=== PATIENT | female | born 1995 | race Caucasian/White ===

== ENCOUNTER 2018-03-19 03:56 | Inpatient (IN) | payer SELFPAY ==
[2018-03-19 00:42] VITALS: BMI 29.2
[2018-03-19] MEDS: 0.9% NaCl Peripheral Flush Adult/Peds IV (02:39)
[2018-03-19] MEDS: Nalbuphine 10 MG/ML Ampul 5 MG IV (02:40)
[2018-03-19] MEDS: Lactated Ringers 1,000 ML 50 ML IV ×3 (04:12→09:59)
[2018-03-19 04:32] LABS: Hematocrit 33.3 % (37-47); Hemoglobin 11.3 g/dl (12.0-15.0); Mean Corp Hgb Conc 33.9 g/gl (32-36); Mean Corpuscular Volume 94.3 fL (81-99); Mean Platelet Vol. 11.2 fl (6.2-12.0); Platelet Count 170 K/mm3 (150-450); RBC Distribution Width CV 13.4 % (11.6-14.6); Red Blood Count 3.53 M/mm3 (4.2-5.4); White Blood Count 13.3 K/mm3 (4.4-11.0)
[2018-03-19 04:33] LABS: Scan Indicated on CBC? Y/N NO
[2018-03-19] MEDS: fentaNYL-bupivacaine (epidural) 100 ML BAG EPIDURAL ×2 (05:30→11:07)
--- NOTE | 2018-03-19 07:59 | HP.PCM_ITS ---
- Problem List (1) History of delivery Status: Acute (2) Short interval between pregnancies affecting , antepartum Status: Acute (3) Rubella non-immune status, antepartum Status: Acute (4) Positive GBS test Status: Acute History Date of Admission: 03/19/18 Final CORINNE: 03/25/18 Gestational age: 39 Weeks and 1 Days History of this : This is a 22 year-old, G2, P1, at 39 weeks gestational age who presented overnight in active labor. +Ctx's. No VB, LOF. She initially had care at [facility]. Hx of 1 prior , LTCS for breech presentation with triple-layer closure. uncomplicated to date. Allergies No Known Allergies Allergy (Verified 03/19/18 00:38) Home Medications: Home Medications Calcium 1 tab PO DAILY 03/19/18 Vit No.130/Iron/Folic [ Tablet] 1 tab PO DAILY 03/19/18 Smoking Status: Former smoker Number of Fetus(es): 1 Heart Tracing: Category 1 TOCO Analysis: Ctx q 2 min History Past Pregnancies: Past Pregnancies Delivery Date Name GA/Weeks Outcome Route Weight Gender Labor Length Anesthesia Delivery Location Provider FOB term C/S for breech Expected Delivery Method: Review of Systems Gynecological: Reports: - - +Ctx. No vb, lof. Physical Exam General: Alert, No apparent distress HEENT: Atraumatic Lungs: - Abdomen: Gravid Neurological: Neuro grossly intact Estimated gestational size: Appropriate for gestational size Presentation: Cephalic Cervix Dilation (cm): 5 - 5cm on admission at 4am Assessment/Plan All Active Problems History of delivery (Acute) Short interval between pregnancies affecting , antepartum (Acute) Rubella non-immune status, antepartum (Acute) Positive GBS test (Acute) This is a 22 year-old, G2, P1, at 39 weeks gestational age who presents in active labor. Hx of prior LTCS for breech presentation. Desires TOLAC. - Risks, benefits, alternatives of a TOLAC have been discussed with pt - PCN for GBS positive - Routine intrapartum care
--- NOTE | 2018-03-19 08:14 | PCM.PN.OB ---
Patient Problems: Active and Suspected Problems History of delivery (Acute) Short interval between pregnancies affecting , antepartum (Acute) Rubella non-immune status, antepartum (Acute) Positive GBS test (Acute) Subjective: Patient comfortable after receiving epidural, denies any rectal pressure at this time. Discussed option for SVE with AROM at this time, patient consents. Objective: FHT baseline 140, mild to moderate variability, + accels, no decels Ctx q 2-3 minutes, palpate moderate to strong SVE = 9/100/0 with BBOW, AROM for meconium fluid - Physical Exam General: Alert, Oriented x3 Lungs: Clear to auscultation Cardiovascular: Regular rate, Regular Rhythm Abdomen: Soft, Non Tender Extremities: No edema Skin: No rashes Neurological: Cranial nerves II-XII grossly intact, Deep Tendon Reflexes 2+/4 and Symmetrical Psych/Mental Status: Normal Affect Weight: 155 lb Body Mass Index (BMI) 29.2 Intake and Output for Last 24 Hours 03/17/18 03/18/18 03/19/18 23:59 23:59 23:59 Intake Total 1295 / 1295 Output Total 200 / 200 Balance 1095 / 1095 Laboratory Tests Past 24 Hrs 03/19/18 03/19/18 02:30 02:30 WBC 13.3 H RBC 3.53 L Hgb 11.3 L Hct 33.3 L MCV 94.3 MCH 32.0 MCHC 33.9 RDW 13.4 RDW Differential 44.0 H Plt Count 170 MPV 11.2 Blood Type A POSITIVE Antibody Screen NEGATIVE Medical Necessity - Tobacco Use Smoking Status: Former smoker Assessment/Plan All Active Problems History of delivery (Acute) Short interval between pregnancies affecting , antepartum (Acute) Rubella non-immune status, antepartum (Acute) Positive GBS test (Acute) 22 y/o @ 40+ weeks, Active Labor, TOLAC, Category I FHT P: 1) Continue present management 2) Report given to Dr. Luis Angel KOLB OB back-up physician, physician on site at this time 3) Anticipate Eli Hughes APRN-BRYCE
[2018-03-19] MEDS: Ondansetron 4 MG/2 ML Vial IV (10:55)
[2018-03-19] MEDS: Oxytocin 30 units/NS 500 ml 30 UNITS/500 ML IV.SOLN 334 UNITS IV (12:10)
--- NOTE | 2018-03-19 12:32 | PCM.OB.VAG ---
Vaginal Delivery Maternal Presentation: Active Labor Amniotic Membrane Rupture Type: Artificial Amniotic Fluid Description: Moderate meconium Final CORINNE: 03/25/18 Gestational age: 39 Weeks and 1 Days Date of Procedure: 03/19/18 Pre-Operative Diagnosis: Active Labor, TOLAC Post-Operative Diagnosis: of Viable Girl Baby Surgery/ Procedure Performed: Spontaneous Vaginal Delivery Type of Anesthesia: Epidural Description of Procedure: Patient progressed well to complete and +1 station. Patient pushed well with urge and delivered viable baby girl at 1204. head delivered OA, restituted to AMADA and then ROT. Anterior shoulder delivered spontaneously followed by posterior shoulder and body. Peds at bedside on standby for meconium stained fluid, but baby was vigorous and with a strong cry and respirations. Infant placed on maternal chest where the baby was dried and stimulated. Apgars 8 and 9. Weight pending. Umbilical cord clamped and cut once it stopped pulsing. Placenta then delivered spontaneously via Rothman mechanism intact with 3VC. FF midline 2FB below umbilicus to massage; IV pitocin for active management of the 3rd stage started to achieve hemostasis. EBL = 150cc. Upon inspection of vaginal vault, 1st vaginal and perineal lacerations noted and repaired in the usual fashion using 3-0 Rapide suture under epidural analgesia. Sponge and needle count correct. Vaginal sweep negative. Baby to breast, bonding and lxon-er-dpad initiated. Dr. Plasencia notified of completed delivery. Continue PP orders at this time. Eli Hughes APRN-ZOILAM Presentation: Vertex Placental Delivery Description: Spontaneous Placenta Disposition: [facility] Cord Vessel Description: 3 Vessels Cord Entanglement: None Estimated Blood Loss: 150cc A gender: Female (1 minute): 8 (5 minute): 9 Episiotomy Description: None Laceration: Midline, Perineal Extension/lac, Vaginal Extension/lac, 1st degree Medications given after delivery: IV Pitocin Complications: None
[2018-03-19] MEDS: Oxytocin 30 units/NS 500 ml 30 UNITS/500 ML IV.SOLN 167 UNITS IV (12:40)
--- NOTE | 2018-03-19 12:54 | DCINST_ITS ---
Discharge Diet: No Restrictions Discharge Activity: Return to Normal Activity, May not drive while taking narcotic pain medications., May Shower May resume sexual activity in: 4-6 weeks Additional Activity Instructions:: Nothing in the vagina for 4-6 weeks. You may return to work/school in 6 weeks. Call your doctor if your incision/area has: Continuous Slow Oozing, Sudden Increased Bleeding, Increased Pain/ Swelling, Increased Redness, Foul Smelling Discharge Call your doctor if you observe: Fever of 101 or Higher, Inability to urinate, Inability to have a bowel movement, Using more than one pad per hour Additional Instructions: If you experience any of the following, contact your healthcare provider. * Bleeding that soaks a pad every hour for 2 hours * Fever 100.4 or higher * Unrelieved incision or abdominal pain * Swelling, redness, discharge or bleeding from your incision or episiotomy site * Your incision begins to separate * Problems urinating (including inability to urinate or burning while urinating). * Visual changes * Severe headache * Flu-like symptoms * Pain or redness in one of both of your breasts * Pain, warmth, tenderness or swelling in your legs, especially the calf area * Frequent nausea and vomiting * Symptoms of depression or anxiety If you experience any of the following, call 911 or go to the nearest Emergency Room. * Chest pain * Problems breathing * Seizure activity * Partial or complete paralysis of a body part, slurred speech, weakness or drooping of the face, or a sudden inability to walk or hold your balance Allergies/Adverse Reactions: Allergies No Known Allergies Allergy (Verified 03/19/18 00:38) Medications to take at Discharge Calcium 1 tab PO DAILY 03/19/18 Vit No.130/Iron/Folic [ Tablet] 1 tab PO DAILY 03/19/18 Please Follow Up With: Eli Hughes CNM When: Call to make an appointment with your provider at 2 weeks and 6 weeks. If you had elevated Blood Pressure or 4th degree laceration you will need to be seen in 1 weeks. Test Results: Test results from this visit will be discussed in further detail at your follow- up appointment, if applicable. Proposed Discharge Date: 03/21/18
[2018-03-19 18:00] VITALS: BP 114/71; PULSE 88; RESP 16; TEMP 36.6; O2SAT 99
--- NOTE | 2018-03-19 19:25 | NURSING ---
epidural cath removed blue tip intact
[2018-03-19 20:21] VITALS: BP 94/54; PULSE 77; RESP 14; TEMP 36.9; O2SAT 97
[2018-03-19] MEDS: Ibuprofen 600 MG Tablet PO (22:13)
[2018-03-19 23:50] VITALS: BP 98/50; PULSE 80; RESP 14; TEMP 36.6; O2SAT 100
[2018-03-20 04:40] VITALS: BP 91/53; PULSE 73; RESP 16; TEMP 36.6; O2SAT 98
--- NOTE | 2018-03-20 08:07 | PCM.PN.OB ---
Patient Problems: Active and Suspected Problems History of delivery (Acute) Short interval between pregnancies affecting , antepartum (Acute) Rubella non-immune status, antepartum (Acute) Positive GBS test (Acute) Subjective: Patient ambulating about room, sitting up in bed and reporting desire for discharge today. Patient reports no issues currently; denies issues with urination or ambulation. Denies passage of large clots or heavy bleeding. Reports that is going well today, no issues with latch. Objective: VSS, Afebrile Nipples without cracks or blisters Abdomen NT x 4 quadrants, FF 3FB midline below umbilicus +2/4 reflexes in BL LE, trace LE edema that is non-pitting, negative calf tenderness to palpation scant rubra lochia, perineum well-approximated - Physical Exam General: Alert, Oriented x3 Lungs: Normal air movement Cardiovascular: Regular rate, Regular Rhythm Abdomen: Soft, Non Tender Extremities: No edema, Capillary Refill Less than 3 Seconds, No Calf Tenderness Skin: No rashes, No breakdown Neurological: Cranial nerves II-XII grossly intact, Deep Tendon Reflexes 2+/4 and Symmetrical Psych/Mental Status: Normal Affect Vital Signs Temp Pulse Resp BP Pulse Ox 98 F 73 16 91/53 L 98 03/20/18 04:40 03/20/18 04:40 03/20/18 04:40 03/20/18 04:40 03/20/18 04:40 Oxygen Delivery Method Room Air Weight: 155 lb Body Mass Index (BMI) 29.2 Intake and Output for Last 24 Hours 03/18/18 03/19/18 03/20/18 23:59 23:59 23:59 Intake Total 3926 / 3926 Output Total 2700 / 2700 Balance 1226 / 1226 Medical Necessity - Tobacco Use Smoking Status: Former smoker Assessment/Plan All Active Problems History of delivery (Acute) Short interval between pregnancies affecting , antepartum (Acute) Rubella non-immune status, antepartum (Acute) Positive GBS test (Acute) 22 y/o s/p delivery at 39.1weeks, PPD #1, Normal Course P: 1) Discharge to home pending discharge 2) Anticipatory discharge and teaching done 3) Follow-up at [facility] office at 2 and 6 weeks PP Eli FINN
[2018-03-20 09:30] VITALS: BP 93/54; PULSE 73; RESP 16; TEMP 36.6
[2018-03-20] MEDS: Ibuprofen 600 MG Tablet PO (09:49)
[2018-03-20 14:00] VITALS: BP 92/58; PULSE 70; RESP 16; TEMP 36.8
== END 2018-03-20 15:45 | disposition home or self-care (01) | DRG 806 ==
LOC: WPOUT 03:59 → WP 03:59
PROVIDERS: Obstetrics & Gynecology; Admitting Provider Obstetrics & Gynecology; Referring Provider Advanced Practice Midwife; Visit Provider Obstetrics & Gynecology
DX: O34.211 Maternal care for low transverse scar from previous cesarean delivery (principal); O36.0130 Maternal care for anti-D [Rh] antibodies, third trimester, not applicable or unspecified; Z37.0 Single live birth; O70.0 First degree perineal laceration during delivery; O99.824 Streptococcus B carrier state complicating childbirth; O77.0 Labor and delivery complicated by meconium in amniotic fluid; O26.893 Other specified pregnancy related conditions, third trimester; Z87.891 Personal history of nicotine dependence; Z3A.39 39 weeks gestation of pregnancy
CPT/HCPCS: 59050; 85027; 86850; 86900; 99218; J7120; A4216; G0378; J2405